=== PATIENT | female | born 2000 | race African-American/Black ===

== ENCOUNTER 2022-12-20 15:33 | Emergency (ER) | payer SELFPAY ==
[~2022-12-20] VITALS: Ht 167.6 cm; Wt 59.0 kg
[2022-12-20 16:23] VITALS: O2SAT 99
[2022-12-20 16:50] LABS: CLARITY URINE TURBID (CLEAR); COLOR URINE RED (YELLOW); GLUCOSE URINE NEGATIVE (NEGATIVE); KETONES URINE 2+ (NEGATIVE); LEUKOCYTE ESTERASE URINE 1+ (NEGATIVE); NITRITE URINE NEGATIVE (NEGATIVE); OCCULT BLOOD URINE 3+ (NEGATIVE); PH URINE 5.5 (4.5-8.0); PROTEIN URINE 2+ (NEGATIVE); SPECIFIC GRAVITY URINE 1.029 (1.005-1.030)
[2022-12-20 17:30] LABS: BACTERIA URINE TRACE; RBC URINE TNTC /hpf (0-2); SQUAMOUS EPITHELIAL CELL URINE 1+ /lpf (RARE/1+)
[2022-12-20 17:59] VITALS: BP 141/98; PULSE 85; RESP 18; TEMP 98
[2022-12-20] MEDS ORDERED: IBUP-2029 MT (18:05)
[2022-12-20] MEDS ORDERED: CEPH500C2 MT (18:05)
[2022-12-20] MEDS ORDERED: PYR200 MT (18:05)
== END 2022-12-20 18:14 | disposition home or self-care (01) ==
LOC: ER 15:33
DX: N30.90 Cystitis, unspecified without hematuria (principal)
CPT/HCPCS: 81003; 81025; 99283